=== PATIENT | male | born 1950 | race Caucasian/White ===

== ENCOUNTER → 2018-10-20 | Outpatient (REF) | payer MEDICARE | LOC: ZZSENDIN 14:23 | PROVIDERS: ATTEND Family Medicine | DX: Z01.812 Encounter for preprocedural laboratory examination (principal) | CPT/HCPCS: 81001 ==

== ENCOUNTER → 2018-10-27 | Outpatient (CLI) | payer MEDICARE | LOC: US 00:42 | PROVIDERS: ATTEND Family Medicine | DX: I34.1 Nonrheumatic mitral (valve) prolapse (principal); R29.898 Other symptoms and signs involving the musculoskeletal system; I07.1 Rheumatic tricuspid insufficiency; I35.0 Nonrheumatic aortic (valve) stenosis | CPT/HCPCS: 93306 ==

== ENCOUNTER → 2018-11-30 | Outpatient (CLI) | payer MEDICARE ==
[~2018-11-30] MED LIST: CELE-1 PO; LOSA100T75 PO; METO50TA19 PO; REGADENOSON 0.4 MG/5 ML SYR ONE
--- NOTE | 2018-11-30 16:24 | RADIOLOGY IMAGING REPORT ---
[place] [facility] [place] NAME: Antoine Mead : 1950 MR: [id number] V: [id number] EXAM DATE: ORDERING PHYSICIAN: ROSA M KNAPP TECHNOLOGIST: [place] [facility] [place] : 1950 Visit/Account:[id number] Date of Sevice: 11/30/2018 EXAMINATION: Single isotope SPECT imaging with regadenoson infusion and gated SPECT imaging. DATE OF EXAMINATION: 11/30/18. DATE OF INTERPRETATION: 11/30/18. REQUESTING PHYSICIAN: ROSA M KNAPP. INDICATION: The patient is a 68-year-old male evaluated for abnormal ECG. PROCEDURE: After informed consent the patient received an intravenous injection of 11.9 mCi of Tc-99 m sestamibi followed at an appropriate time interval by rest imaging. The patient then subsequently received an intravenous infusion of 0.4 mg of regadenoson per protocol without complication. Resting heart rate was 54 bpm with a peak heart rate of 76 bpm. Blood pressure at rest was 133 / 86 and fol lowing infusion was 145 / 92. Baseline EKG demonstrates sinus rhythm. There were no EKG changes of ischemia following infusion. Symptoms were nonspecific. The patient then received an intravenous in jection of 29.1 mCi of Tc-99m sestamibi followed by stress imaging. RAW DATA: Examination of the summed raw data revealed a good quality study. MYOCARDIAL PERFUSION: The tomographic images demonstrate normal myocardial perfusion with no evidenc e of infarct or ischemia. There is no TID. GATED IMAGES: The gated images demonstrate normal ejection fraction 55% with normal wall motion and thickening. IMPRESSION: 1. Nondiagnostic Lexiscan stress ECG 2. Normal myocardial perfusion scan. 3. Normal LV systolic function; LVEF 55%. 4. Based on the results of this exam, the patient appears to be at low risk for future cardiovascular events. Report Dictated By: Laith Garcia at 11/30/2018 3:58 PM Report E-Signed By: Laith Garcia at 11/30/2018 4:21 PM WSN:[id number]
--- NOTE | 2018-11-30 16:38 | RT STRESS TEST REPORT ---
FACILITY: [facility] [place] PATIENT NAME: WILMAN ROSALES : [id number] MR: [id number] V: [id number] EXAM DATE: ORDERING PHYSICIAN: ROSA M KNAPP TECHNOLOGIST: Hilario Acquisition Time: 2018-11-30 09:40:54 Total Exercise Time: 00:01:00 Test Indications: LBBB Medications: Protocol: LEXISCAN Max HR: 076 BPM 49% of Pred: 153 BPM Max BP: 145/092 mmHG Max Work Load: 1.0 METS Impression No EKG changes to suggest ischemia Nuclear medicine report to follow Confirmed by JOSE ROMAN ([id number]) on 11/30/2018 4:38:23 PM Referred By: Overread By: JOSE ROMAN
== END ==
LOC: RESP 11-16 00:25 → NUC 00:37
PROVIDERS: ATTEND Family Medicine
DX: I44.7 Left bundle-branch block, unspecified (principal)
CPT/HCPCS: 78452; 93017; A9500; J2785

== ENCOUNTER 2019-01-16 01:37 | Observation (INO) | payer MEDICARE ==
[2019-01-15 15:01] LABS: INR 0.98
[~2019-01-16] VITALS: Ht 167.6 cm; Wt 96.2 kg
[2019-01-16] VITALS (10 sets, daily range): BP systolic 118–169; BP diastolic 73–105
[~2019-01-16 01:37] MED LIST changes: +ACETAMINOPHEN 500 MG TAB PO ONE; +CELECOXIB 200 MG CAP PO ONE; +DICY10AM2 PO; +FAMOTIDINE 20 MG TAB PO ONE; +GABA-549 PO; +LIDOCAINE/SOD BICARB 8.4% SYR ID ONE; +LOSA-57 PO; +MIDAZOLAM 2 MG/2 ML VIAL IVP PRN; +NORMOSOL R SOLN(*) 1000 ML BAG 1,000 ML IV PRN; +PREGABALIN 150 MG CAPSULE PO ONE; -REGADENOSON 0.4 MG/5 ML SYR ONE; +ROPIVACAINE 0.2% 400 MG/200ML 250 ML CONINFUS ONE; +ROPIVACAINE/EPI/CLONIDINE/KET 50 ML SYRINGE INJ ONE; +TRAM-420 PO; +TRANEXAMIC AC 1000 MG/10ML SDV 1,000 MG in DEXTROSE 5% 50 ML BAG 50 ML IV ONE; +ceFAZolin(*) 2GM/D5W 50ML 50 ML IVPB ONE
[2019-01-16] MEDS ORDERED: hydrALAZINE HCL 20 MG/ML VIAL ONE ×2 (10:21→13:22)
[2019-01-16] MEDS ORDERED: fentaNYL CITR 250 MCG/5 ML AMP ONE (10:25)
[2019-01-16] MEDS ORDERED: ONDANSETRON 4 MG/2 ML VIAL ONE (10:26)
[2019-01-16] MEDS ORDERED: DEXAMETHASONE SOD 4 MG/ML VIAL ONE (10:26)
[2019-01-16] MEDS ORDERED: LIDOCAINE MPF 1% 5 ML VIAL ONE (10:26)
[2019-01-16] MEDS ORDERED: PROPOFOL EMUL(*) 10MG/ML 20 ML 20 ML ONE (10:26)
[2019-01-16] MEDS ORDERED: KETAMINE HCL 200 MG/20 ML MDV ONE (10:28)
[2019-01-16] MEDS ORDERED: EPINEPHrine HCL 1 MG/ML AMP ONE (10:41)
[2019-01-16] MEDS ORDERED: ROPIVACAINE 0.5% 20 ML VIAL ONE (10:41)
[2019-01-16] MEDS ORDERED: TRANEXAMIC AC 1000 MG/10ML SDV 1,000 MG in DEXTROSE 5% 50 ML BAG 50 ML IV ONE (11:35)
[2019-01-16] MEDS ORDERED: CELECOXIB 200 MG CAP PO ONE (11:35)
[2019-01-16] MEDS ORDERED: PREGABALIN 150 MG CAPSULE PO ONE (11:35)
[2019-01-16] MEDS ORDERED: MIDAZOLAM 2 MG/2 ML VIAL IVP PRN (11:35)
[2019-01-16] MEDS ORDERED: ROPIVACAINE 0.2% 400 MG/200ML 250 ML CONINFUS ONE (11:35)
[2019-01-16] MEDS ORDERED: NORMOSOL R SOLN(*) 1000 ML BAG 1,000 ML IV PRN ×2 (11:35→15:50)
[2019-01-16] MEDS ORDERED: ACETAMINOPHEN 500 MG TAB PO ONE (11:35)
[2019-01-16] MEDS ORDERED: FAMOTIDINE 20 MG TAB PO ONE (11:35)
[2019-01-16] MEDS ORDERED: ceFAZolin(*) 2GM/D5W 50ML 50 ML IVPB ONE (11:35)
[2019-01-16] MEDS ORDERED: LIDOCAINE/SOD BICARB 8.4% SYR ID ONE (11:35)
[2019-01-16] MEDS ORDERED: ROPIVACAINE/EPI/CLONIDINE/KET 50 ML SYRINGE INJ ONE (11:35)
[2019-01-16] MEDS ORDERED: ePHEDrine 25 MG/5 ML DISP.SYR IVP ONE (12:16)
[2019-01-16] MEDS ORDERED: LABETALOL HCL 100 MG/20ML VIAL ONE (12:33)
[2019-01-16] MEDS ORDERED: fentaNYL CITR 100 MCG/2 ML AMP ONE ×4 (13:15→15:57)
[2019-01-16] MEDS ORDERED: NS 0.9% 20 ML SDV 20 ML ONE (14:27)
[2019-01-16] MEDS ORDERED: MORPHINE 4 MG/ML SDV IVP PRN (15:50)
[2019-01-16] MEDS ORDERED: oxyCODONE HCL 5 MG CAP PO PRN (15:50)
[2019-01-16] MEDS ORDERED: PROMETHAZINE 25 MG/ML 1 ML AMP IVP PRN (15:50)
[2019-01-16] MEDS ORDERED: BISACODYL 10 MG SUPP PR PRN (15:50)
[2019-01-16] MEDS ORDERED: FLUSH 10 ML SYR IVP PRN (15:50)
[2019-01-16] MEDS ORDERED: ZOLPIDEM TARTRATE 5 MG TAB PO PRN (15:50)
[2019-01-16] MEDS ORDERED: MAGNESIUM HYDROXIDE* 30ML UDCP PO PRN (15:50)
[2019-01-16] MEDS ORDERED: ONDANSETRON 4 MG/2 ML VIAL IVP PRN (15:50)
[2019-01-16] MEDS ORDERED: traMADol 50 MG TAB PO PRN (15:50)
--- NOTE | 2019-01-16 16:29 | RADIOLOGY IMAGING REPORT ---
FACILITY: [facility] [place] PATIENT NAME: Antoine Mead : 1950 MR: [id number] V: [id number] EXAM DATE: ORDERING PHYSICIAN: FANG PABLO TECHNOLOGIST: Location: [facility] [place] Patient: Antoine Mead : 1950 Visit/Account:[id number] Date of Sevice: 01/16/2019 Technique: KNEE LIMITED LEFT HISTORY: POST-OP KNEE ARTHROPLASTY PLACEMENT Comparison studies: None FINDINGS: There is no acute fracture. Noted is a left knee arthroplasty. There is gross anatomic al ignment. Expected adjacent postoperative changes are noted. IMPRESSION: 1. Left knee arthroplasty without evidence of acute hardware complication. Report Dictated By: Omid Hernandez DO at 01/16/2019 4:19 PM Report E-Signed By: Omid Hernandez DO at 01/16/2019 4:23 PM WSN:[id number]
[2019-01-16] MEDS: ACETAMINOPHEN 500 MG TAB PO SCH (17:00)
--- NOTE | 2019-01-16 17:00 | Hospitalist Progress Note ---
Subjective Progress Notes Subjective Patient seen post-op. Reviewed PMHx (HTN, DJD) and medications. At present, he reports doing well. No CP/SOB/nausea. Physical Exam Vital Signs Date Time Temp Pulse Resp B/P (MAP) Pulse Ox O2 Delivery O2 Flow Rate FiO2 01/16/19 16:35 90 01/16/19 16:32 96.9 90 16 131/73 (92) Room Air General Appearance: Alert, Awake Cardiovascular: Regular Rate and Rhythm (with soft systolic murmur) Respiratory: Clear to Auscultation Psych: Alert & Oriented X3 Assessment and Plan Problems: (1) HTN (hypertension) Status: Chronic Assessment & Plan: Will monitor BPs and resume his losartan HCT and metoprolol based on parameters. (2) Status post knee replacement Status: Acute Assessment & Plan: He appears to have done well with OR/anesthesia. He has no history of DVT/PE. He will be on aspirin 325mg daily for prophylaxis. PUJA MULTANI MD Jan 16, 2019 17:00
[2019-01-16] MEDS: IBUPROFEN 200 MG TAB PO SCH (18:00)
[2019-01-16] MEDS: ceFAZolin(*) 2GM/D5W 50ML 50 ML IVPB SCH (20:11)
[2019-01-16] MEDS ORDERED: ASPIRIN 325 MG TAB PO ONE (21:00)
[2019-01-16] MEDS: GABAPENTIN 300 MG CAP PO SCH (21:40)
--- NOTE | 2019-01-16 22:12 | OPERATIVE REPORT 1 ---
EVENT DATE: January 16, 2019 SURGEON: Loco Rodrigues MD ANESTHESIOLOGIST: Yemi Roberto MD ANESTHESIA: Left adductor canal block indwelling, followed by general anesthesia. METAL EXPEDITER: ANUSHA Hawthorne PREOPERATIVE DIAGNOSES 1. Left knee retained hardware from previous anterior cruciate ligament reconstruction. 2. Medial unicompartmental arthroplasty. 3. Arthritis of the remaining two compartments. POSTOPERATIVE DIAGNOSES 1. Left knee retained hardware from previous anterior cruciate ligament reconstruction. 2. Medial unicompartmental arthroplasty. 3. Arthritis of the remaining two compartments. PROCEDURES PERFORMED 1. Left knee hardware removal of the medial compartment arthroplasty and the two anterior cruciate ligament screws. 2. Revision left total knee arthroplasty. IMPLANTS USED Microport Medial-Pivot CS system with a 6 tibia, 5 femur, 14 mm CS insert, and 8 x 35 symmetric patella. We also utilized two packs of Don-Loyda [place] Blue Cement, our standard 50 mL of Toradol/ropivacaine cocktail, and ZipLine closure system. SPECIMENS None. COMPLICATIONS None. BLOOD LOSS Less than 200 mL. DESCRIPTION OF PROCEDURE Patient received appropriate preoperative antibiotics. He was brought to the OR where Dr. Roberto performed left adductor canal block with indwelling catheter, followed by general anesthesia. Left thigh tourniquet placed, but was not utilized. The left lower extremity was prepped and draped in the usual sterile fashion. Utilizing the previous incision, sharp dissection was carried out through skin and subcutaneous tissues. We noted scarring medially. Arthrotomy was performed. Subperiosteally, we dissected along the medial tibial plateau to the level of the semimembranosus insertion. We noted the tibial screw with at least three threads out, and this was easily removed with a screwdriver. The significant scarring in the post-patellar fat pad region was excised with the Bovie, patella released and everted. We then utilized a sagittal saw and flexible osteotomes to loosen and remove the medial femoral component with minimal bone loss. In a similar manner, we removed the tibial insert and baseplate with minimal bone loss. Free cement was easily removed with a rongeur. I removed the remaining articular cartilage from the lateral femoral condyle with the sagittal saw and utilized a step cut drill to broach the canal and place the intramedullary tibial guide. Referencing along the this line, we then set up the distal cutting block at 6 degrees valgus, 10 mm, and this cut was made. We then yordy a line from the medial epicondyle to the lateral epicondyle, and utilizing this, and the posterior condyles a 3-degree external rotation guide referencing size #5 off the femur from the anterior flange. We drilled the 30-degree external rotation holes and placed our four-in-one cutting block. With Z retractors placed to protect the soft tissues, we made our four cuts. The tibia was brought anterior to the femur with appropriate retractors. We then utilized the step cut drill to broach the canal and placed our intramedullary tibial guide. Referencing 10 mm off the least involved lateral tibial plateau, we were about a millimeter to 2 mm above the medial tibial plateau, so we referenced 2 mm off this side and referenced for rotation, pinned the block into place, and made our cut. This came into good bone medially. The stumps of the ACL, PCL, medial and lateral menisci were removed by Bovie. An osteotome was utilized to remove posterior osteophytes, followed by Christopher elevator to elevate the capsule. It should be noted that as we were prepping the femur, the femoral screw was easily noted. It was loose, and this was easily removed. We now placed our #6 tibial baseplate referencing previous rotation and pinned this into place. We placed a 14 mm insert and a #5 femur. We achieved full extension, flexion of 140 degrees, and stability through varus/valgus stress with some mild medial opening, but less than a grade. At 90 degrees, we had satisfactory endpoint and anterior drawer. We place the knee in full extension. The patella was sized to 23 mm. Utilizing an 8 mm guide, we cut this down. We then placed a pedicle guide inferiorly and medially and drilled our three peg holes, and this accepted an 8 x 35 symmetric patella. Knee was then flexed. Peg holes were drilled with the femur in place. We then cut for the trochlear chip, which was then placed. Again, we had the aforementioned range of motion and stability. The patella tracked well. Patella, femur, and tibial insert were removed. Appropriate retractors were placed to set up our tibial keel tower, which was cut, reamed, and punched. We then removed this instrumentation, placed a bone plug in the distal femur, and while we copiously irrigated with pulse lavage, two packages of Don-Loyda [place] Blue Cement were mixed. We set up the knee in the appropriate position after 10 mL of our cocktail in the posterior capsule. Starting with the tibia, this was cemented in place, followed by a 14 mm CS insert, and then the #5 femur. Excess cement was removed. Knee was brought in full extension with axial compression while we cemented the patella. We then injected the remaining 40 mL of our cocktail in the quadriceps mechanism. We irrigated with warm fluid, and after 12 minutes, the cement had cured. Again, we had the aforementioned range of motion and stability. We closed the arthrotomy at 30 degrees with #2 Vicryl, followed by 2-0 Vicryl for subcutaneous tissues, and at 45 degrees, the ZipLine wound closure system. A compressive dressing was applied. Patient was extubated and taken to Recovery in stable condition. Hospitalist team will be consulted for medical management and anticoagulation and PT for rehab. TOMY
[2019-01-17] MEDS: ACETAMINOPHEN 500 MG TAB PO SCH ×2 (00:51→08:55)
[2019-01-17 01:00] VITALS: BP 127/79
[2019-01-17 03:30] VITALS: BP 131/68
[2019-01-17] MEDS: ceFAZolin(*) 2GM/D5W 50ML 50 ML IVPB SCH (03:31)
[2019-01-17] MEDS: IBUPROFEN 200 MG TAB PO SCH ×2 (06:20)
[2019-01-17 06:49] VITALS: BP 134/77
--- NOTE | 2019-01-17 08:00 | NUR ---
Physical Therapy Impression PT eval complete. Pt completed bed mobility, transfers and ambulation with Ruthie and use of RW. PT instructed pt in stair negotiation with use of RW and proper sequencing, pt re=demonstrated with SBA. SpO2 95% on room air, 86% at rest on room air, 1L O2 donned, SPO2 WNL. PT instruction for supine LE ther-ex with emphasis on good quad contraction with exercises. Pt I) with CPM after education. All PT goals met, pt with plans to f/u with OP PT Physical Therapy Goals 1: Pt to complete bed mobility with Ruthie 2: pt to complete transfers with RW and Ruthie 3: Pt to ambulate 150' with RW and Ruthie 4: Pt to asc/desc 1 step with RW and SBA 5: Pt to be I) with use of CPM Patient's Goals
[2019-01-17 08:08] VITALS: Ht 167.6 cm; Wt 96.2 kg
[2019-01-17] MEDS ORDERED: TRAM-420 PO (08:10)
[2019-01-17] MEDS ORDERED: OXYC5CAP21 PO (08:18)
[2019-01-17] MEDS ORDERED: ASPI-757 PO (08:24)
[2019-01-17] MEDS: GABAPENTIN 300 MG CAP PO SCH (08:55)
[2019-01-17] MEDS ORDERED: METOPROLOL SUCC XL 50 MG TABCR 50 MG TAB.ER.24H PO SCH (09:00)
[2019-01-17] MEDS ORDERED: LOSARTAN POTASSIUM 50 MG TAB PO SCH (09:00)
[2019-01-17] MEDS ORDERED: HYDROCHLOROTHIAZIDE 25 MG TAB PO SCH (09:00)
[2019-01-17] MEDS ORDERED: ASPIRIN 325 MG TAB PO SCH (09:00)
--- NOTE | 2019-01-17 10:01 | Hospitalist Progress Note ---
Subjective Progress Notes Subjective He was admitted s/p knee replacement. He had no acute events overnight. He wants to go home today. Patient Complains of: Cardiovascular: No: Chest Pain Respiratory: No: Shortness of Breath Physical Exam Vital Signs Date Time Temp Pulse Resp B/P (MAP) Pulse Ox O2 Delivery O2 Flow Rate FiO2 01/17/19 06:49 97.9 88 134/77 (96) 93 Nasal Cannula 1.0 01/17/19 03:30 16 Intake and Output 01/17/19 07:01 Intake Total 4050 ml Output Total 950 ml Balance 3100 ml Intake Oral 500 ml IV Total 3550 ml Output Urine Total 450 ml Emesis 500 ml # Voids 3 # Emeses 2 General Appearance: Alert, Awake, No Acute Distress, Afebrile Neuro: No Gross deficits Cardiovascular: Regular Rate and Rhythm Respiratory: No Respiratory Distress, Clear to Auscultation GI: Soft and Non-Tender Psych: Alert & Oriented X3, Appropriate Mood & Affect Assessment and Plan Problems: (1) Status post knee replacement Status: Acute Assessment & Plan: He appears to have done well with OR/anesthesia. He has no history of DVT/PE. He will be on aspirin 325mg daily for prophylaxis. (2) HTN (hypertension) Status: Chronic Assessment & Plan: Will monitor BPs and resume his losartan HCT and metoprolol based on parameters. Exam Sepsis Risk: No Definite Risk Problem Qualifiers (1) HTN (hypertension): Hypertension type: essential hypertension Qualified Codes: I10 - Essential (primary) hypertension ALTAGRACIA RICHARDP Jan 17, 2019 10:01
--- NOTE | 2019-01-17 11:13 | NUR ---
Patient instructed how to change dressing on 01/18/19. Discharged with original surgical dressing on 01/17. Addendum: 01/17/19 at 1115 by MARLEN IBARRA RN Amended: Links added.
--- NOTE | 2019-01-19 11:58 | DISCHARGE SUMMARY ---
DATE OF ADMISSION: January 16, 2019 DATE OF DISCHARGE: January 17, 2019. HISTORY OF PRESENT ILLNESS The patient is a 68-year-old male admitted to Day Surgery. Underwent left knee hardware removal by two screws and removal of medial compartment arthroplasty, followed by revision total knee arthroplasty. Postoperatively, the hospitalist team was consulted for medical management and anticoagulation, PT for rehab. On the day of discharge, the patient felt that he was doing well. His wounds were dressed and he was neurovascularly intact. He felt he would like to go home, so once he was cleared by the hospitalist team as well as PT, he could be discharged to home. The plan is for outpatient physical therapy and follow up in my clinic next week. PREOPERATIVE DIAGNOSIS Painful retained hardware of left knee, medial compartment arthroplasty and arthritis. PRINCIPAL PROCEDURE Hardware removal and revision left total knee arthroplasty. TOMY
== END 2019-01-17 08:08 | disposition home or self-care (01) ==
LOC: OR 01:37 → MED 16:29
PROVIDERS: ADMIT Orthopaedic Surgery; ATTEND Orthopaedic Surgery
DX: M13.862 Other specified arthritis, left knee (principal); E11.9 Type 2 diabetes mellitus without complications; I10 Essential (primary) hypertension; I44.7 Left bundle-branch block, unspecified; M79.89 Other specified soft tissue disorders; Z96.652 Presence of left artificial knee joint; T84.84XA Pain due to internal orthopedic prosthetic devices, implants and grafts, initial encounter; M17.12 Unilateral primary osteoarthritis, left knee
CPT/HCPCS: 27486; 36415; 36416; 73560; 76942; 82948; 85610; 86850; 86900; 86901; 97116; 97161; A9270; C1713; C1776; G0378; J0171; J0360; J1100; J2001; J2250; J2405; J2550; J2704; J2795; J3010; J3490; J7030; J7050; J7060; J0690